=== PATIENT | female | born 1950 | race Native Hawaiian/Other Pacific Islander ===

== ENCOUNTER 2019-09-04 00:47 | Emergency (ER) | payer OTHER ==
[~2019-09-04] VITALS: Ht 162.6 cm; Wt 69.9 kg
[2019-09-04 01:04] VITALS: Ht 162.6 cm; Wt 69.9 kg
[2019-09-04 02:13] LABS: BASOPHIL % 0.5 % (0-2); PLATELET COUNT 167 x10^3mcL (130-400); RED CELL DISTRIBUTION WIDTH 13.5 % (11.5-14.5)
[2019-09-04 02:47] LABS: CALCIUM 9.2 mg/dL (8.5-10.1); CARBON DIOXIDE 31.3 mmol/L (21-32)
[2019-09-04 02:53] LABS: ALBUMIN 3.4 g/dL (3.4-5.0); BILIRUBIN TOTAL 0.3 mg/dL (0.20-1.00); TOTAL PROTEIN, SERUM 7.4 g/dL (6.4-8.2)
[2019-09-04 03:45] VITALS: BP 166/63
[2019-09-04 04:31] LABS: UA SPECIFIC GRAVITY <=1.005 (1.005-1.035); microscopic required? YES; urine erythrocyte NEGATIVE (NEGATIVE)
== END 2019-09-04 03:45 | disposition home or self-care (01) ==
LOC: ED 00:47
PROVIDERS: Emergency Medicine
DX: I10 Essential (primary) hypertension (principal); R42 Dizziness and giddiness; E11.9 Type 2 diabetes mellitus without complications; Z90.49 Acquired absence of other specified parts of digestive tract
CPT/HCPCS: 36415; Q0092